=== PATIENT | male | born 1955 | race African-American/Black ===

== ENCOUNTER 2021-04-07 00:23 | Inpatient (IN) | payer BC ==
[~2021-04-07] VITALS: Ht 190.5 cm; Wt 90.7 kg
[2021-04-07] MEDS ORDERED: NITROGLYCERIN 0.4MG TABLET SL SL PRN (02:15)
[2021-04-07] MEDS ORDERED: ASPIRIN 81MG TABLET PO ONE (02:15)
[2021-04-07 02:32] LABS: BASOPHILS % 0.9 % (0.0-2.0); EOSINOPHILS % 3.8 % (0.0-5.0); HEMATOCRIT. 42.6 % (42.0-52.0); HEMOGLOBIN. 14.2 g/dL (14.0-18.0); LYMPHOCYTES % 36.3 % (20.0-50.0); MEAN CORPUSCULAR HEMOGLOBIN 29.3 pg (28.0-32.0); MEAN CORPUSCULAR VOLUME 87.9 fL (80.0-94.0); MEAN PLATELET VOLUME 7.7 fl (7.4-10.4); MONOCYTES % 13.1 % (2.0-8.0); NEUTROPHILS % 45.9 % (40.0-76.0); PLATELET 223 x1000/uL (130-400); RED BLOOD CELL COUNT 4.85 mill/uL (4.7-6.1); RED CELL DISTRIBUTION WIDTH 13.8 % (11.6-14.6)
[2021-04-07 02:39] LABS: CHLORIDE 111 mEq/L (98-107)
[2021-04-07 09:59] VITALS: BP 170/99
[2021-04-07] MEDS ORDERED: DUTA0.5C37 PO (10:35)
[2021-04-07] MEDS ORDERED: DOXA8TAB81 MT (10:35)
[2021-04-07] MEDS ORDERED: ATOR20TA65 PO (10:35)
[2021-04-07] MEDS ORDERED: METO-385 MT (10:35)
[2021-04-07] MEDS ORDERED: ACETAMINOPHEN 325MG TABLET PO PRN (10:45)
[2021-04-07] MEDS ORDERED: ONDANSETRON HCL 4MG/2ML INJ IV PRN (10:45)
[2021-04-07] MEDS ORDERED: AMLODIPINE 10MG TABLET PO SCH (12:15)
[2021-04-07] MEDS: AMLODIPINE 10MG TABLET PO SCH (12:53)
[2021-04-07] MEDS: DOXAZOSIN MESYLATE 4MG TABLET PO SCH (13:00)
[2021-04-07 15:55] VITALS: BP 135/77
[2021-04-07 16:31] LABS: HDL CHOLESTEROL 41 mg/dL (40-59)
[2021-04-07 16:33] LABS: LDL CHOLESTEROL 61 mg/dL (5-100)
[2021-04-07 20:00] VITALS: BP 118/70
[2021-04-07] MEDS: ATORVASTATIN CALCIUM 20MG TABLET PO SCH (20:44)
[2021-04-07] MEDS: DUTASTERIDE 0.5MG CAPSULE PO SCH (20:44)
[2021-04-07 20:49] LABS: OPIATES URINE SCREEN NEGATIVE (NEGATIVE); PHENCYCLIDINE URINE SCREEN NEGATIVE (NEGATIVE)
[2021-04-07 20:50] LABS: *AMPHETAMINES SCREEN URINE NEGATIVE (NEGATIVE); *BARBITURATES SCREEN URINE NEGATIVE (NEGATIVE); *BENZODIAZEPINES SCREEN URINE NEGATIVE (NEGATIVE); *COCAINE SCREEN URINE NEGATIVE (NEGATIVE); CANNABINOID URINE SCREEN NEGATIVE (NEGATIVE); METHADONE URINE SCREEN NEGATIVE (NEGATIVE)
[2021-04-07] MEDS: HYDROCORTISONE ACETATE 25MG SUPP PR SCH (22:56)
[2021-04-07] MEDS ORDERED: HYDROCORTISONE 2.5% RECTAL CREAM 30GM PR SCH (23:00)
[2021-04-08] VITALS: BP 130/66
[2021-04-08 04:00] VITALS: BP 111/61
[2021-04-08 08:00] VITALS: BP 123/64
[2021-04-08] MEDS: HYDROCORTISONE ACETATE 25MG SUPP PR SCH ×2 (08:05→22:05)
[2021-04-08] MEDS: DUTASTERIDE 0.5MG CAPSULE PO SCH (08:05)
[2021-04-08] MEDS: DOXAZOSIN MESYLATE 4MG TABLET PO SCH (08:06)
[2021-04-08] MEDS: AMLODIPINE 10MG TABLET PO SCH (08:06)
[2021-04-08 12:00] VITALS: BP 120/59
[2021-04-08 16:00] VITALS: BP 126/66
[2021-04-08 20:00] VITALS: BP 142/87
[2021-04-08] MEDS: ATORVASTATIN CALCIUM 20MG TABLET PO SCH (22:05)
[2021-04-09] VITALS: BP 131/77
[2021-04-09 04:00] VITALS: BP 114/60
[2021-04-09] MEDS: NITROGLYCERIN SPRAY/4.9GM CAN TL NR ×2 (07:00→10:25)
[2021-04-09 08:00] VITALS: BP 127/70
[2021-04-09] MEDS: DUTASTERIDE 0.5MG CAPSULE PO SCH (09:09)
[2021-04-09] MEDS: AMLODIPINE 10MG TABLET PO SCH (09:09)
[2021-04-09] MEDS: DOXAZOSIN MESYLATE 4MG TABLET PO SCH (09:09)
[2021-04-09] MEDS ORDERED: IOHEXOL-350 100 ML BOTTLE ONE (11:59)
[2021-04-09 13:23] LABS: BASOPHILS % 0.8 % (0.0-2.0); EOSINOPHILS % 1.7 % (0.0-5.0); HEMOGLOBIN. 15.4 g/dL (14.0-18.0); MEAN CORPUSCULAR HEMOGLOBIN 29.9 pg (28.0-32.0); MEAN CORPUSCULAR VOLUME 87.4 fL (80.0-94.0); MEAN PLATELET VOLUME 7.6 fl (7.4-10.4); MONOCYTES % 9.2 % (2.0-8.0); NEUTROPHILS % 64.3 % (40.0-76.0); PLATELET 247 x1000/uL (130-400); RED BLOOD CELL COUNT 5.16 mill/uL (4.7-6.1); RED CELL DISTRIBUTION WIDTH 13.8 % (11.6-14.6)
[2021-04-09 14:14] LABS: CHLORIDE 107 mEq/L (98-107)
[2021-04-09] MEDS ORDERED: ENOXAPARIN 100MG/ML SYR SUBCUT SCH (15:00)
[2021-04-09] MEDS ORDERED: AMLO10TA80 PO (15:48)
[2021-04-09 15:55] VITALS: BP 122/67
[2021-04-09 16:00] VITALS: BP 122/57
[2021-04-10] MEDS ORDERED: ASPIRIN 81MG TABLET PO SCH (09:00)
== END 2021-04-09 17:35 | disposition home or self-care (01) | DRG 73 ==
LOC: ER 00:23 → ENRESERV 08:34 → 8WST 10:42 → UNDODISIN 12:05
PROVIDERS: ADMIT Internal Medicine; ATTEND Internal Medicine
DX: G90.8 Other disorders of autonomic nervous system (principal); I26.99 Other pulmonary embolism without acute cor pulmonale; R07.89 Other chest pain; I10 Essential (primary) hypertension; E78.5 Hyperlipidemia, unspecified; E87.8 Other disorders of electrolyte and fluid balance, not elsewhere classified; G89.29 Other chronic pain; R00.1 Bradycardia, unspecified; M48.02 Spinal stenosis, cervical region; I45.10 Unspecified right bundle-branch block; Z20.822 Contact with and (suspected) exposure to COVID-19; Z79.899 Other long term (current) drug therapy
CPT/HCPCS: 36415; 71045; 72131; 75571; 80048; 80053; 80061; 80305; 83880; 84443; 84484; 85025; 87426; 93005; 93306; 93970; 99285; Q9967

== ENCOUNTER 2022-05-03 11:41 | Emergency (ER) | payer BC ==
[~2022-05-03] VITALS: Ht 188 cm; Wt 86.0 kg
[~2022-05-03 11:41] MED LIST: AMLO10TA80 PO; ATOR20TA65 PO; DOXA8TAB81 MT; DUTA0.5C37 PO
[2022-05-03] MEDS ORDERED: KETOROLAC 60MG/2ML VIAL IM ONE (13:15)
[2022-05-03] MEDS ORDERED: TRAM50TA3 MT (15:10)
[2022-05-03] MEDS ORDERED: IBUP-2028 MT (15:10)
[2022-05-03 16:10] VITALS: BP 122/78
== END 2022-05-03 16:10 | disposition home or self-care (01) ==
LOC: ER 11:41
DX: M54.9 Dorsalgia, unspecified (principal); I10 Essential (primary) hypertension; Z79.899 Other long term (current) drug therapy
CPT/HCPCS: 72100; 96372; 99283; J1885

== ENCOUNTER 2022-07-27 03:38 | Emergency (ER) | payer BC ==
[~2022-07-27] VITALS: Ht 188 cm; Wt 87.0 kg
[~2022-07-27 03:38] MED LIST changes: +IBUP-2028 MT; +TRAM50TA3 MT
[2022-07-27] MEDS ORDERED: HYDROCODONE/ACETAMINOPHEN 5/325MG TABLET PO ONE (06:30)
[2022-07-27 06:59] VITALS: BP 175/99
[2022-07-27 08:56] LABS: CLARITY URINE CLEAR (CLEAR); COLOR URINE YELLOW (YELLOW); KETONES URINE NEGATIVE (NEGATIVE); LEUKOCYTE ESTERASE URINE 2+ (NEGATIVE); NITRITE URINE NEGATIVE (NEGATIVE); OCCULT BLOOD URINE 3+ (NEGATIVE); PH URINE 5.5 (4.5-8.0); PROTEIN URINE 2+ (NEGATIVE); SPECIFIC GRAVITY URINE 1.015 (1.005-1.030); UROBILINOGEN URINE 0.2 E.U./dL (0.2-1.0)
[2022-07-27] MEDS ORDERED: CEPH500C2 MT (09:56)
[2022-07-27] MEDS ORDERED: T3 PO (09:56)
== END 2022-07-27 10:23 | disposition home or self-care (01) ==
LOC: ER 03:38
DX: N30.00 Acute cystitis without hematuria (principal); I10 Essential (primary) hypertension; Z98.890 Other specified postprocedural states
CPT/HCPCS: 81003; 99283